=== PATIENT | male | born 1990 | race Caucasian/White ===

== ENCOUNTER 2019-04-21 23:35 | Emergency (ER) | payer OTHER ==
[~2019-04-21] VITALS: Ht 203.2 cm; Wt 119.8 kg
--- OUTSIDE RECORDS SUMMARY | ~2019-04-21 | XMS | Encounter Summary ---
Demographics + + + | Address | [address] | | | [place] [address] | + + + | Home Phone | | + + + | Preferred Language | Unknown | + + + | Marital Status | Single | + + + | Christianity Affiliation | Unknown | + + + | Race | Unknown | + + + | Ethnic Group | Unknown | + + + Author + + + | Author | [facility] | | | and Priyankana | + + + | Organization | [facility] | | | and Priyankana | + + + | Address | Unknown | + + + | Phone | Unavailable | + + + Support + + + + + | Name | Relationship | Address | Phone | + + + + + | Ewelina Gamboa | ECON | [address] | | | | | [place] | | | | | [address] | | + + + + + Care Team Providers + +------+ + | Care Case Operator Name | Role | Phone | + +------+ + | No, Physician | PCP | Unavailable | + +------+ + Reason for Visit + + + | Reason | Comments | + + + | Sore Throat | | | (Complicated) | | + + + Encounter Details +--------+ + + + + | Date | Type | Department | Care Team | Description | +--------+ + + + + | 05/19/ | Emergency | [facility] | [facility]ad[facility]us [facility] | Peritonsillar | | 2016 | | [facility] | MD Anaya [address] | abscess (Primary | | | | CENTER [address] | [place], [place] | Dx); Enlarged | | | | [place], [place] | [address] | tonsils; Right | | | | [address] | | maxillary sinusitis | | | | [phone] | Rivera Mariscal, | | | | | | [address] | | | | | | [facility] [facility] [place] | | | | | | [address] | | | | | | | | +--------+ + + + + Social History + +-------+ +--------+------+ | Tobacco Use | Types | Packs/Day | Years | Date | | | | | Used | | + +-------+ +--------+------+ | Never Assessed | | | | | + +-------+ +--------+------+ + + + | Sex Assigned at | Date Recorded | | | | + + + | Not on file | | + + + + + + + | Job Start Date | Occupation | Industry | + + + + | Not on file | Not on file | Not on file | + + + + + + + + | Travel History | Travel Start | Travel End | + + + + + + | No recent travel history available. | + + documented as of this encounter Last Filed Vital Signs + + + + + | Vital Sign | Reading | Time Taken | Comments | + + + + + | Blood Pressure | 135/77 | 05/19/2015 10:01 PM | | | | | PST | | + + + + + | Pulse | 102 | 05/19/2015 10:01 PM | | | | | PST | | + + + + + | Temperature | 36.2 C (97.2 F) | 05/19/2015 7:56 PM | | | | | PST | | + + + + + | Respiratory Rate | 16 | 05/19/2015 10:01 PM | | | | | PST | | + + + + + | Oxygen Saturation | 93% | 05/19/2015 10:01 PM | | | | | PST | | + + + + + | Inhaled Oxygen | - | - | | | Concentration | | | | + + + + + | Weight | 111.1 kg (245 lb) | 05/19/2015 7:56 PM | | | | | PST | | + + + + + | Height | 203.2 cm (6' 8") | 05/19/2015 7:56 PM | | | | | PST | | + + + + + | Body Mass Index | 26.91 | 05/19/2015 7:56 PM | | | | | PST | | + + + + + documented in this encounter Discharge Instructions Instructions Lm Miguel MD - 05/19/2015Return for severe worsening sympto ms. Follow-up in medical clinic. AttachmentsThe following attachments cannot be sent through Care Everywhere.VASU AGUILAR (INDONESIAN)documented in this encounter Medications at Time of Discharge + + + +---------+ + + | Medication | Sig | Dispensed | Refills | Start | End Date | | | | | | Date | | + + + +---------+ + + | | Take 1 tablet by | 30 | 0 | 05/19/19 | | | oxyCODONE-acetaminop | mouth every 6 hours | tablet | | 16 | | | hen (PERCOCET) 5-325 | as needed for Pain. | | | | | | mg per tablet | | | | | | + + + +---------+ + + | | Take 1 tablet by | 20 | 0 | 05/19/19 | | | amoxicillin-clavulan | mouth 2 times daily | tablet | | 16 | 6 | | ate (AUGMENTIN) | for 10 days. | | | | | | 875-125 mg per | | | | | | | tablet | | | | | | + + + +---------+ + + | predniSONE | Take 5 tablets by | 25 | 0 | 05/19/19 | | | (DELTASONE) 10 mg | mouth Daily for 5 | tablet | | 16 | 6 | | tablet | days. | | | | | + + + +---------+ + + documented as of this encounter Plan of Treatment Not on filedocumented as of this encounter Procedures + +--------+ + + + | Procedure Name | Priori | Date/Time | Associated Diagnosis | Comments | | | ty | | | | + +--------+ + + + | CULTURE, | Routin | 05/19/2015 | | Results for this | | RESPIRATORY, UPPER | e | 9:56 PM | | procedure are in the | | | | PST | | results section. | + +--------+ + + + documented in this encounter Results Culture, Respiratory, Upper (05/19/2015 9:56 PM PST) + + + + + + | Component | Value | Ref Range | Performed | Pathologist | | | | | At | Signature | + + + + + + | Culture | No Group A Streptococcus | | [facility] | | | | isolated | | [facility] | | | | | | MEDICAL | | | | | | CENTER - | | | | | | LABORATORY | | + + + + + + | Culture | 3+ Streptococcus | | [facility] | | | | pneumoniaeComment: | | [facility] | | | | Presumptive | | MEDICAL | | | | identification | | CENTER - | | | | | | LABORATORY | | + + + + + + + + | Specimen | + + | Respiratory - | | Specimen from throat | | (specimen) | + + + + + | Narrative | Performed At | + + + | Specimen kept for 7 days if further workup is needed. | [facility] | | | [facility] | | | [facility] | | | - LABORATORY | + + + + + + + + | Performing | Address | City/State/Zipcode | Phone Number | | Organization | | | | + + + + + | [facility] | [address] | [place], [place] | [phone] | | [facility] | | [address] | | | - LABORATORY | | | | + + + + + documented in this encounter Visit Diagnoses + + | Diagnosis | + + | Peritonsillar abscess - Primary | + + | Enlarged tonsils Hypertrophy of tonsils alone | + + | Right maxillary sinusitis | + + documented in this encounter Administered Medications + +--------+ +------+------+------+ | Medication Order | MAR | Action | Dose | Rate | Site | | | Action | Date | | | | + +--------+ +------+------+------+ | HYDROmorphone (DILAUDID) | Given | 05/19/19 | 1 mg | | | | injection 1 mg 1 mg, | | 16 8:36 | | | | | Intravenous, ONCE, 05/19/15 at | | PM PST | | | | | 5, For 1 dose | | | | | | + +--------+ +------+------+------+ +---+---+ | | | +---+---+ + +---------+ +--------+-------+---+ | lactated ringers (LR) infusion | New Bag | 05/19/19 | 1,000 | 100 | | | at 100 mL/hr, Intravenous, | | 16 8:53 | mLs | mL/hr | | | CONTINUOUS, Starting 05/19/15 | | PM PST | | | | | at 2035 | | | | | | + +---------+ +--------+-------+---+ +---+---+ | | | +---+---+ + + + + +---+---+ | oxyCODONE-acetaminophen | Dispense | 05/19/19 | 1 tablet | | | | (PERCOCET) 5-325 mg per tablet | to Home | 16 9:51 | | | | | (ED prepack) 1 tablet 1 tablet, | | PM PST | | | | | Oral, ONCE, 05/19/15 at 2100, | | | | | | | For 1 dose, 1 tablet(s) every 6 | | | | | | | hours prn pain Dispense for home | | | | | | | use., | | | | | | + + + + +---+---+ +---+---+ | | | +---+---+ documented in this encounter
--- OUTSIDE RECORDS SUMMARY | ~2019-04-21 | XMS | Encounter Summary ---
Demographics + + + | Address | [address] | | | [place] [address] | + + + | Home Phone | | + + + | Preferred Language | Unknown | + + + | Marital Status | Single | + + + | Yazidism Affiliation | Unknown | + + + | Race | Unknown | + + + | Ethnic Group | Unknown | + + + Author + + + | Author | [facility] | | | and Priyankana | + + + | Organization | [facility] | | | and Priyankana | + + + | Address | Unknown | + + + | Phone | Unavailable | + + + Support + + + + + | Name | Relationship | Address | Phone | + + + + + | Ewelina Gamboa | ECON | [address] | | | | | [place] | | | | | [address] | | + + + + + Care Team Providers + +------+ + | Care Emergency Room Physician Name | Role | Phone | + +------+ + | No Physician | PCP | Unavailable | + +------+ + Encounter Details +--------+ + + + + | Date | Type | Department | Care Team | Description | +--------+ + + + + | 07/01/ | Emergency | [facility] | [facility] Physician | Patient left without | | 2017 | | [facility] | | being seen (Primary | | | | CENTER [address] | | Dx) | | | | [place] | | | | | | [address] | | | | | | [phone] | | | +--------+ + + + [...] + + documented as of this encounter Medications at Time of Discharge + + + +---------+ + + | Medication | Sig | Dispensed | Refills | Start | End Date | | | | | | Date | | + + + +---------+ + + | | Take 1 tablet by | 30 | 0 | 01/20/20 | | | oxyCODONE-acetaminop | mouth every 6 hours | tablet | | 16 | | | hen (PERCOCET) 5-325 | as needed for Pain. | | | | | | mg per tablet | | | | | | + + + +---------+ + + documented as of this encounter Plan of Treatment Not on filedocumented as of this encounter Visit Diagnoses + + | Diagnosis | + + | Patient left without being seen - Primary Surgical or other procedure not carried out | | because of patient's decision | + + documented in this encounter"
--- OUTSIDE RECORDS SUMMARY | ~2019-04-21 | XMS | Encounter Summary ---
Demographics + + + | Address | [address] | | | [place] [address] | + + + | Home Phone | | + + + | Preferred Language | Unknown | + + + | Marital Status | Single | + + + | Bahai Affiliation | Unknown | + + + | Race | Unknown | + + + | Ethnic Group | Unknown | + + + Author + + + | Author | [facility] | | | and Priyankana | + + + | Organization | [facility] | | | and Priyankana | [...] | [place] | | | | | [address] | | + + + + + Care Team Providers + +------+ + | Care Tunnel Elastic Operator Zigzag Name | Role | Phone | + [...] [place] | | | | | | [address] | | | | | | [phone] | | | +--------+ + + + [...]
--- OUTSIDE RECORDS SUMMARY | ~2019-04-21 | XMS | Clinical Summary ---
Demographics + + + | Address | [address] | | | [place] [address] | + + + | Home Phone | | + + + | Preferred Language | Unknown | + + + | Marital Status | Single | + + + | Buddhism Affiliation | Unknown | + + + | Race | Unknown | + + + | Ethnic Group | Unknown | + + + Author + + + | Author | [facility] | | | and Priyankana | + + + | Organization | [facility] | | | and Priyankana | + + + | Address | Unknown | + + + | Phone | Unavailable | + + + Support + + + + + | Name | Relationship | Address | Phone | + + + + + | Ewelina Gamboa | ECON | [address] | | | | | [place] | | | | | [address] | | + + + + + Care Team Providers + +------+ + | Care Inspector Water Pollution Control Name | Role | Phone | + +------+ + | No, Physician | PCP | Unavailable | + +------+ + Allergies No Known Allergies Medications + + + +---------+------+------+-------+ | Medication | Sig | Dispensed | Refills | Star | End | Statu | | | | | | t | Date | s | | | | | | Date | | | + + + +---------+------+------+-------+ | | Take 1 tablet by | 30 | 0 | 01/2 | | Activ | | oxyCODONE-acetaminop | mouth every 6 hours | tablet | | 0/20 | | e | | hen (PERCOCET) 5-325 | as needed for Pain. | | | 16 | | | | mg per tablet | | | | | | | + + + +---------+------+------+-------+ Active Problems Not on file Social History + +-------+ +--------+------+ | Tobacco [...] recent travel history available. | + + Last Filed Vital Signs + + + [...] | | + + + + + Plan of Treatment + + + + + | Health Maintenance | Due Date | Last Done | Comments | + + + + + | Vaccine: | | | | | Dtap/Tdap/Td (1 - | 1 | | | | Tdap) | | | | + + + + + | Vaccine: Influenza | | | | | (#1) | 9 | | | + + + + + Results Not on filefrom Last 3 Months Advance Directives + + + + + | Type | Date Recorded | Patient | Explanation | | | | Board Mixer Tender | | + + + + + | Power of | | | | | Academic Assistant | | | | + + + + + | Advance | | | | | Directive | | | | + + + + +
--- OUTSIDE RECORDS SUMMARY | ~2019-04-21 | XMS | Clinical Summary ---
Demographics + + + | Address | [address] | | | [place] [address] | + + + | Home Phone | | + + + | Preferred Language | Unknown | + + + | Marital Status | Single | + + + | Yazidism Affiliation | Unknown | + + + | Race | Unknown | + + + | Ethnic Group | Unknown | + + + Author + + + | Author | [facility] | | | and Priyankana | + + + | Organization | [facility] | | | and Priyankana | [...] [place] | | | | | [address] | | + + + + + Care Team Providers + +------+ + | Care Solution Manager Name | Role | Phone | + [...] Patient | Explanation | | | | Exercise Specialist | | + + + + + | Power of | | | | | T Rail Turner | | | | + + + + + | Advance | | | | | Directive | | | | + + + + +
--- OUTSIDE RECORDS SUMMARY | ~2019-04-21 | XMS | Encounter Summary ---
Demographics + + + | Address | [address] | | | [place] [address] | + + + | Home Phone | | + + + | Preferred Language | Unknown | + + + | Marital Status | Single | + + + | Protestant Affiliation | Unknown | + + + | Race | Unknown | + + + | Ethnic Group | Unknown | + + + Author + + + | Author | [facility] | | | and Priyankana | + + + | Organization | [facility] [...] | [place] | | | | | [address] | | + + + + + Care Team Providers + +------+ + | Care Licensed Vocational Nurse Name | Role | Phone | + [...] | | | | CENTER [address] | [place], [place] | Dx); Enlarged | | | | [place], [place] | [address] | tonsils; Right | | | | [address] | | maxillary sinusitis | | | | [phone] | Rivera Mariscal, | | | | | | [address] | | | | | | [place] [facility] [place] | | | | | | [address] | | | | | | | [...] cannot be sent through Care Everywhere.VASU AGUILAR (AZERI)documented in this encounter Medications at Time of [...] ST. | [address] | [place], [place] | [phone] | | [facility] | | [address] | | | - LABORATORY | | [...]
[~2019-04-21 23:35] MED LIST: AMOXICILLIN500 MG PO; AUGMENTIN 875-1 EACH PO; IBUPROFEN600 MG PO; IBUPROFEN800 MG PO; PRILOSEC OTC20 MG PO; SEPTRA DS TABL1 EACH PO; TETRACYCLINE H500 MG PO; TRAMADOL HCL50 MG PO; TYLENOL325 MG PO; ULTRAM50 MG PO
[2019-04-21] MEDS ORDERED: ULTRAM50 MG PO (23:55)
== END 2019-04-22 01:48 | disposition home or self-care (01) ==
LOC: ED 23:35
DX: R10.11 Right upper quadrant pain (principal); B20 Human immunodeficiency virus [HIV] disease; J02.9 Acute pharyngitis, unspecified; Z79.891 Long term (current) use of opiate analgesic
CPT/HCPCS: 71046; 74177; 80053; 81001; 83690; 85025; 87502; 87880; 99284-25; Q9967

== ENCOUNTER 2020-06-08 13:32 | Emergency (ER) | payer OTHER ==
[~2020-06-08] VITALS: Ht 203.2 cm; Wt 111.1 kg
== END 2020-06-08 16:42 | disposition home or self-care (01) ==
LOC: ED 13:32
DX: B34.9 Viral infection, unspecified (principal); Z79.899 Other long term (current) drug therapy; Z20.822 Contact with and (suspected) exposure to COVID-19
CPT/HCPCS: 71046; 80053; 85025; 99283-25; C9803; U0003

== ENCOUNTER 2021-04-19 13:40 | Emergency (ER) | payer SELFPAY ==
[~2021-04-19] VITALS: Ht 203.2 cm; Wt 99.8 kg
[2021-04-19] MEDS ORDERED: HYDROXYZINE HCL25 MG PO (14:36)
[2021-04-19] MEDS ORDERED: COLACE100 MG PO (14:37)
[2021-04-19] MEDS ORDERED: PROZAC10 MG PO (14:37)
[2021-04-19] MEDS ORDERED: FLUOXETINE HCL20 M1 PO (14:38)
[2021-04-19] MEDS ORDERED: ACETAMINOPHEN500 MG PO (14:38)
[2021-04-19] MEDS ORDERED: BIKTARVY 50-201 EACH PO (14:38)
[2021-04-19] MEDS ORDERED: FIBER LAX625 MG PO (14:38)
== END 2021-04-19 19:08 | disposition home or self-care (01) ==
LOC: ED 13:40
DX: B34.9 Viral infection, unspecified (principal); Z20.822 Contact with and (suspected) exposure to COVID-19; Z21 Asymptomatic human immunodeficiency virus [HIV] infection status; Z79.899 Other long term (current) drug therapy
CPT/HCPCS: 71045; 80053; 83605; 85025; 99283-25; C9803; U0003

== ENCOUNTER 2023-01-28 00:18 | Emergency (ER) | payer OTHER ==
[~2023-01-28] VITALS: Ht 203.2 cm; Wt 103.4 kg
--- OUTSIDE RECORDS SUMMARY | ~2023-01-28 | XMS | Continuity of Care Document ---
Demographics + + + | Address | [address] | | | [place] [address] | + + + | Preferred Language | Unknown | + + + | Marital Status | Never | + + + | Yarsani Affiliation | Unknown | + + + | Race | White | + + + | Ethnic Group | Not or | + + + Author + + + | Author | [facility] | + + + | Organization | [facility] | + + + | Address | [address] | | | [place] [address] | + + + | Phone | | + + + Care Team Providers + + + + | Care Follow Up Rep Name | Role | Phone | + + + + Unavailable | Unavailable | + + + + Allergies No information. Encounters No information. Functional Status No information. Immunizations No information. Medications No information. Problems + + + + | date | description | facility | + + + + | 2023-01-21 22:41 | PERIAPICAL ABSCESS WITHOUT | [facility] | | | SINUS | | + + + + | 2023-01-21 22:41 | OTHER SPECIFIED DISORDERS | [facility] | | | OF TEETH AND SUPPORTING | | | | STRUCTURES | | + + + + | 2023-01-21 22:41 | OTHER DISTRIBUTION SUPERVISOR (CURRENT) | [facility] | | | DRUG THERAPY | | + + + + | 2023-01-21 22:41 | ALLERGY TO OTHER FOODS | [facility] | + + + + | 2023-01-21 22:41 | BEE ALLERGY STATUS | [facility] | + + + + Procedures No information. Results/Labs No information. Social History +--------+ + + | date | description | facility | +--------+ + + Vital Signs No information."
[~2023-01-28 00:18] MED LIST changes: +ACETAMINOPHEN500 MG PO; +AMOX TR-K CLV1 EAC1 PO; +BIKTARVY 50-201 EACH PO; +COLACE100 MG PO; +FIBER LAX625 MG PO; +FLUOXETINE HCL20 M1 PO; +HYDROXYZINE HCL25 MG PO; +PROZAC10 MG PO
--- OUTSIDE RECORDS SUMMARY | 2023-01-28 00:20 | XMS ---
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 LEE Security Manager Shift Events 1 event(s) in the past 18 months Most recent security events: Elopement at [facility] 02/20/2022 14:18 - Patient eloped before treatment completed. - Patient with suicidal and/or homicidal ideations eloped. - Patient eloped with IV in place. Details: PATIENT LWBS CRITERIA MET - [facility] - 2 Visits in 30 Days CARE PROVIDERS [facility]/Center: Federally Qualified 11/28/2021-[facility] ([facility]) [facility] PHONE: Unknown -Seun Dentist: [facility] PHONE: [phone] JORGE GREENBERG Current PHONE: Unknown MANPREET KUHN [facility] Current PHONE: Unknown SERGIO GIRON Cotton Presser/Loan And Credit Manager Current PHONE: [phone] MILA MASON Cotton Presser/Loan And Credit Manager Current PHONE: [phone] JASMEET KRAUS Cotton Presser/Loan And Credit Manager [facility] PHONE: Unknown Pratima has no Care Guidelines for this patient. E.D. VISIT COUNT (12 MO.) [address] [facility] TOTAL 5 NOTE: Visits indicate total known visits. ED/UCC VISIT TRACKING (12 MO.) 01/28/2023 00:19 [facility] [place] TYPE: Emergency COMPLAINT: - SPIDER BITE AND SORE THROAT 01/21/2023 22:41 [facility] [place] TYPE: Emergency COMPLAINT: - TOOTH PAIN DIAGNOSES: - Allergy to other foods - Bee allergy status - Other moth exterminator (current) drug therapy - Other specified disorders of teeth and supporting structures - Periapical abscess without sinus 06/24/2022 02:24 [facility] [place] TYPE: Emergency COMPLAINT: - INFECTION RIGHT ARM DIAGNOSES: - Cellulitis of right upper limb - Cellulitis of right upper limb - Cutaneous abscess of right upper limb - Cutaneous abscess of right upper limb 06/17/2022 12:30 [facility] [place] TYPE: Emergency COMPLAINT: - LUMP ON RIGHT WRIST DIAGNOSES: - Cellulitis of right upper limb - Erythematous condition, unspecified 02/20/2022 14:18 [facility] [place] TYPE: Emergency COMPLAINT: - POSS BLOODCLOT L LEG INPATIENT VISIT TRACKING (12 MO.) No inpatient visits to display in this time frame [email or web address]
[2023-01-28] MEDS ORDERED: HYDROCODON-ACE1 EA10 PO (01:20)
[2023-01-28] MEDS ORDERED: BACTRIM DS TAB1 EACH PO (01:28)
[2023-01-28 02:00] VITALS: BP 126/81
== END 2023-01-28 02:00 | disposition home or self-care (01) ==
LOC: ED 00:18
DX: J02.0 Streptococcal pharyngitis (principal); L03.115 Cellulitis of right lower limb; Z86.14 Personal history of Methicillin resistant Staphylococcus aureus infection; Z21 Asymptomatic human immunodeficiency virus [HIV] infection status; Z91.030 Bee allergy status; Z91.018 Allergy to other foods; Z79.899 Other long term (current) drug therapy
CPT/HCPCS: 87651; 99283; A9270

== ENCOUNTER 2023-02-15 20:39 | Emergency (ER) | payer OTHER ==
[~2023-02-15] VITALS: Ht 203.2 cm; Wt 103.5 kg
[~2023-02-15 20:39] MED LIST changes: +BACTRIM DS TAB1 EACH PO; +HYDROCODON-ACE1 EA10 PO
--- OUTSIDE RECORDS SUMMARY | 2023-02-15 20:41 | XMS ---
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 ELE Security Print Line Supervisor Events 1 event(s) in the past 18 months Most recent security events: Elopement at [facility] 02/20/2022 14:18 - Patient eloped before treatment completed. - Patient with suicidal and/or homicidal ideations eloped. - Patient eloped with IV in place. Details: PATIENT LWBS CRITERIA MET - [facility] - 2 Visits in 30 Days CARE PROVIDERS [facility]/Center: Federally Qualified 11/28/2021-[facility] PHONE: Unknown -Seun Dentist: Hand [facility] PHONE: [phone] JORGE GREENBERG Current PHONE: Unknown MANPREET KUHN [facility] Current PHONE: Unknown SERGIO GIRON Hybrid Derivatives Trader/Meat And Seafood Clerk Current PHONE: [phone] MILA MASON Hybrid Derivatives Trader/Meat And Seafood Clerk Current PHONE: [phone] JASMEET KRAUS Hybrid Derivatives Trader/Meat And Seafood Clerk [facility] PHONE: Unknown Pratima has no Care Guidelines for this patient. E.D. VISIT COUNT (12 MO.) [address] [facility] 2 [facility] TOTAL 6 NOTE: Visits indicate total known visits. ED/UCC VISIT TRACKING (12 MO.) 02/15/2023 20:39 [facility] [place] TYPE: Emergency COMPLAINT: - WOUND CHECK 01/28/2023 00:19 [facility] [place] TYPE: Emergency COMPLAINT: - SPIDER BITE AND SORE THROAT DIAGNOSES: - Acute pharyngitis, unspecified - Allergy to other foods - Bee allergy status - Cellulitis of right lower limb - Other nursing home (current) drug therapy - Personal history of Methicillin resistant Staphylococcus aureus infection - Streptococcal pharyngitis 01/21/2023 22:41 [facility] [place] TYPE: Emergency COMPLAINT: - TOOTH PAIN DIAGNOSES: - Allergy to other foods - Bee allergy status - Other terminal gauger (current) drug therapy - Other specified disorders of teeth and supporting structures - Periapical abscess without sinus 06/24/2022 02:24 [facility] [place] TYPE: Emergency COMPLAINT: - INFECTION RIGHT ARM DIAGNOSES: - Cellulitis of right upper limb - Cellulitis of right upper limb - Cutaneous abscess of right upper limb - Cutaneous abscess of right upper limb 06/17/2022 12:30 [employer] [email or web address] [employer] [facility] [place] TYPE: Emergency COMPLAINT: - LUMP ON RIGHT WRIST DIAGNOSES: - Cellulitis of right upper limb - Erythematous condition, unspecified 02/20/2022 14:18 [facility] [place] TYPE: Emergency COMPLAINT: - POSS BLOODCLOT L LEG INPATIENT VISIT TRACKING (12 MO.) No inpatient visits to display in this time frame [email or web address]
[2023-02-15 21:32] LABS: BASOPHILS 1.1 % (0-2); EOSINOPHILS 1.4 % (0-6); HEMATOCRIT 35.8 % (35.0-50.0); HEMOGLOBIN 12.1 g/dL (12.0-18.0); LYMPHOCYTES 20.2 % (24-44); MCH 28.4 (27-36); MCHC 33.8 g/dl (30-36); MCV 84.2 fl (81-99); MONOCYTES 8.9 % (0-12); NEUTROPHILS 68.4 % (39-80); PLATELET COUNT 247 K/uL (140-440); RBC 4.25 M/ul (4.3-5.7)
[2023-02-15 21:38] LABS: BILIRUBIN, URINE NEGATIVE (negative); BLOOD/HGB, URINE LARGE (Negative); KETONE, URINE NEGATIVE (Negative); LEUK ESTERASE, URINE NEGATIVE (negative); NITRITE, URINE NEGATIVE (negative); PH, URINE 6.5 (5-7)
[2023-02-15 21:46] LABS: BACTERIA, URINE NONE SEEN /hpf (negative); CASTS, URINE NONE SEEN \\lpf; COLLECTION TYPE, URINE CLEAN CATCH; CRYSTALS, URINE NONE SEEN (0-1+); EPITHELIAL CELLS, URINE 0 /lpf (0-1+); REFLEX CULTURE, URINE No (No); WHITE BLOOD CELLS, URINE 0-1 /HPF (0-5)
[2023-02-15 21:48] LABS: ALBUMIN 3.1 g/dL (3.4-5.0); ALBUMIN/GLOBULIN RATIO 0.62 (1.1-2.4); ANION GAP 7.6 (7-21); BILIRUBIN, TOTAL 0.6 ng/dL (0.2-1.0); BUN/CREATININE RATIO 12.08 (6.0-28.6); CALCIUM 8.4 mg/dL (8.5-10.1); CREATININE, SERUM 0.91 mg/dL (0.70-1.30); POTASSIUM 3.6 mmol/L (3.5-5.1); PROTEIN, TOTAL 8.1 g/dL (6.4-8.2)
[2023-02-15 21:52] LABS: AMPHETAMINES, URINE NEGATIVE (NEGATIVE); BARBITURATES, URINE NEGATIVE (NEGATIVE); BENZODIAZEPINE, URINE NEGATIVE (NEGATIVE); BUPRENORPHINE, URINE NEGATIVE (NEGATIVE); CANNABINOID, URINE NEGATIVE (NEGATIVE); COCAINE, URINE NEGATIVE (NEGATIVE); ECSTASY, URINE NEGATIVE (NEGATIVE); FENTANYL, URINE NEGATIVE (NEGATIVE); METHADONE, URINE NEGATIVE (NEGATIVE); OPIATES, URINE NEGATIVE (NEGATIVE); OXYCODONE, URINE NEGATIVE (NEGATIVE); PHENCYCLIDINE, URINE NEGATIVE (NEGATIVE)
[2023-02-15 21:53] LABS: LACTIC ACID, BLOOD 0.8 mmol/L (0.4-2.0)
[2023-02-15 22:03] LABS: INR 1.3 (0.80-1.30); PROTIME 15.6 Sec (11.2-14.2)
[2023-02-15 22:11] LABS: INFLUENZA B NAA NEGATIVE (NEGATIVE); RESPIRATORY SYNCYTIAL VIR NAA NEGATIVE (NEGATIVE)
[2023-02-15] MEDS ORDERED: BACTRIM DS TAB1 EACH PO (23:38)
[2023-02-15] MEDS ORDERED: TRAMADOL HCL50 MG PO (23:38)
[2023-02-16 01:16] VITALS: BP 126/59
[2023-02-17 11:15] LABS: % CD4 18 % (32-64); ABSOLUTE CD4 300 cells/uL (430-1800)
[2023-02-18 20:08] LABS: HIV-1 QNT BY NAAT INTERP Detected (Not Detected); HIV-1 QNT NAAT (LOG COPIES/ML) 4.13 (())
== END 2023-02-16 01:10 | disposition home or self-care (01) ==
LOC: ED 20:39
PROVIDERS: Family Medicine
DX: L03.115 Cellulitis of right lower limb (principal); L02.415 Cutaneous abscess of right lower limb; Z20.822 Contact with and (suspected) exposure to COVID-19; Z11.52 Encounter for screening for COVID-19; D72.829 Elevated white blood cell count, unspecified; Z91.030 Bee allergy status; Z91.018 Allergy to other foods; Z87.891 Personal history of nicotine dependence
CPT/HCPCS: 36415; 73701; 80053; 80307; 81001; 83605; 85025; 85610; 87040; 87502; 87536; 96375; 99284-25; A9270; C9803; J1885; J3370; J7030; Q9967; U0002

== ENCOUNTER 2023-04-01 10:33 | Emergency (ER) | payer OTHER ==
[~2023-04-01] VITALS: Ht 203.2 cm; Wt 105.6 kg
--- OUTSIDE RECORDS SUMMARY | ~2023-04-01 | XMS | Continuity of Care Document ---
Demographics + + + | Address | [address] | | | [place] [address] | + + + | Preferred Language | Unknown | + + + | Marital Status | Unknown | + + + | Presybeterian Affiliation | Unknown | + + + | Race | White | + + + | Ethnic Group | Not or | + + + Author + + + | Author | [facility] | + + + | Organization | [facility] | + + + | Address | [address] | | | [place] [address] | + + + | Phone | | + + + Care Team Providers + + + + | Care Soybean Specialties Cook Name | Role | Phone | + + + + Unavailable | Unavailable | + + + + Allergies No information. Encounters No information. Functional Status No information. Immunizations No information. Medications No information. Problems + + + + | date | description | facility | + + + + | 2023-03-02 16:03:57 | Wound Infection | [facility] | + + + + | 2023-03-02 16:28:33 | Cellulitis of right lower | [facility] | | | limb | | + + + + | 2023-03-05 21:23:27 | Other terminal make up operator (current) | [facility] | | | drug therapy | | + + + + Procedures No information. Results/Labs No information. Social History +--------+ + + | date | description | facility | +--------+ + + Vital Signs No information."
--- OUTSIDE RECORDS SUMMARY | 2023-04-01 10:36 | XMS ---
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 LEE Security Certified Physical Therapist Assistant Events 1 event(s) in the past 18 months Most recent security events: Elopement at [facility] 02/20/2022 14:18 - Patient eloped before treatment completed. - Patient with suicidal and/or homicidal ideations eloped. - Patient eloped with IV in place. Details: PATIENT LWBS CRITERIA MET - [facility] - [facility] - 2 Visits in [address] [facility]/Center: Federally Qualified 11/28/2021-[facility] ([facility] PHONE: Unknown -Seun Dentist: Fire Supervisor [facility] PHONE: [phone] JORGE GREENBERG Current PHONE: Unknown MANPREET KUHN [facility] Current PHONE: Unknown SERGIO GIRON Sex Offender Treatment Professional/Slag Wheeler Current PHONE: [phone] MILA MASON Sex Offender Treatment Professional/Slag Wheeler Current PHONE: [phone] JASMEET KRAUS Sex Offender Treatment Professional/Slag Wheeler [facility] TEAM PHONE: Unknown Pratima has no Care Guidelines for this patient. E.D. VISIT COUNT (12 MO.) 4 [facility] [address] [place] [address] [facility] TOTAL 7 NOTE: Visits indicate total known visits. ED/UCC VISIT TRACKING (12 MO.) 04/01/2023 10:34 [facility] [place] TYPE: Emergency COMPLAINT: - SHORTNESS OF BREATH 03/02/2023 16:03 [facility] TYPE: Emergency COMPLAINT: - right leg infection DIAGNOSES: - Cellulitis of right lower limb - Cellulitis of right lower limb - right leg infection - Wound Infection 02/15/2023 20:39 [facility] [place] TYPE: Emergency COMPLAINT: - WOUND CHECK DIAGNOSES: - Allergy to other foods - Bee allergy status - Cellulitis of right lower limb - Contact with and (suspected) exposure to COVID-19 - Cutaneous abscess of right lower limb - Elevated white blood cell count, unspecified - Encounter for screening for COVID-19 - Personal history of nicotine dependence - Unspecified open wound, right thigh, initial encounter 01/28/2023 00:19 [facility] [place] TYPE: Emergency COMPLAINT: - SPIDER BITE AND SORE THROAT DIAGNOSES: - Acute pharyngitis, unspecified - Allergy to other foods - Bee allergy status - Cellulitis of right lower limb - Other intermediate school teacher (current) drug therapy - Personal history of Methicillin resistant Staphylococcus aureus infection - Streptococcal pharyngitis 01/21/2023 22:41 [facility] [place] TYPE: Emergency COMPLAINT: - TOOTH PAIN DIAGNOSES: - Allergy to other foods - Bee allergy status - Other skilled nursing (current) drug therapy - Other specified disorders of teeth and supporting structures - Periapical abscess without sinus 06/24/2022 02:24 [facility] [facility] [place] TYPE: Emergency COMPLAINT: - INFECTION RIGHT ARM DIAGNOSES: - Cellulitis of right upper limb - Cellulitis of right upper limb - Cutaneous abscess of right upper limb - Cutaneous abscess of right upper limb 06/17/2022 12:30 [employer] [facility] [place] TYPE: Emergency COMPLAINT: - LUMP ON RIGHT WRIST DIAGNOSES: - Cellulitis of right upper limb - Erythematous condition, unspecified INPATIENT VISIT TRACKING (12 MO.) No inpatient visits to display in this time frame [email or web address]
[2023-04-01] MEDS ORDERED: CHLORDIAZEPOXID25 MG PO (10:45)
[2023-04-01 11:32] LABS: INFLUENZA B NAA NEGATIVE (NEGATIVE); RESPIRATORY SYNCYTIAL VIR NAA NEGATIVE (NEGATIVE)
[2023-04-01] MEDS ORDERED: ZITHROMAX250 MG PO (12:01)
[2023-04-01 12:13] VITALS: BP 141/80
== END 2023-04-01 12:10 | disposition home or self-care (01) ==
LOC: ED 10:33
PROVIDERS: Emergency Medicine
DX: J06.9 Acute upper respiratory infection, unspecified (principal); Z21 Asymptomatic human immunodeficiency virus [HIV] infection status; Z11.52 Encounter for screening for COVID-19; Z86.14 Personal history of Methicillin resistant Staphylococcus aureus infection; Z88.0 Allergy status to penicillin; Z91.018 Allergy to other foods; Z91.030 Bee allergy status; Z79.899 Other long term (current) drug therapy
CPT/HCPCS: 71045; 87502; 99283-25; A9270; C9803; U0002

== ENCOUNTER 2023-05-22 11:12 | Emergency (ER) | payer OTHER ==
[~2023-05-22] VITALS: Ht 203.2 cm; Wt 105.0 kg
--- OUTSIDE RECORDS SUMMARY | ~2023-05-22 | XMS | Continuity of Care Document ---
Demographics + + + | Address | [address] | | | [place] [address] | + + + | Preferred Language | Unknown | + + + | Marital Status | Unknown | + + + | Scientology Affiliation | Unknown | + + + | Race | White | + + + | Ethnic Group | Not or | + + + Author + + + | Author | [facility] | + + + | Organization | [facility] | + + + | Address | [address] | | | [place] [address] | + + + | Phone | | + + + Care Team Providers + + + + | Care Copy Center Specialist Name | Role | Phone | + [...] + + | 2023-03-05 21:23:27 | Other yard truck driver (current) | [facility] | | | drug therapy | | + + + + Procedures No information. Results/Labs No information. Social History +--------+ + + | date | description | facility | +--------+ + + Vital Signs No information."
[~2023-05-22 11:12] MED LIST changes: +CHLORDIAZEPOXID25 MG PO; +ZITHROMAX250 MG PO
--- OUTSIDE RECORDS SUMMARY | 2023-05-22 11:17 | XMS ---
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 - Patient eloped before treatment completed. - Patient with suicidal and/or homicidal ideations eloped. Details: PATIENT LWBS CRITERIA MET - 6 ED Visits in 6 Months CARE PROVIDERS [facility]/Center: Federally Qualified 11/28/2021-[facility] PHONE: Unknown -Seun Dentist: Medical Transport Specialist [facility] PHONE: [phone] JORGE GREENBERG Current PHONE: Unknown MANPREET KUHN [facility] Current PHONE: Unknown SERGIO GIRON International Marketing Manager/Geotechnicial Properties Technician Current PHONE: [phone] MILA MASON International Marketing Manager/Geotechnicial Properties Technician Current PHONE: [phone] [facility]Center: [facility] \F\ [facility] PHONE: [phone] JASMEET KRAUS International Marketing Manager/Geotechnicial Properties Technician [facility] TEAM PHONE: Unknown Pratima has no Care Guidelines for this patient. Maral VISIT COUNT (12 MO.) 5 SHADY Wiggins [address] [address] [address] [place] TOTAL 8 NOTE: Visits indicate total known visits. ED/UCC VISIT TRACKING (12 MO.) 05/22/2023 11:12 [facility] [place] TYPE: Emergency COMPLAINT: - COLD SYMPTOMS 04/01/2023 10:34 [facility] [place] TYPE: Emergency COMPLAINT: - SHORTNESS OF BREATH DIAGNOSES: - Acute upper respiratory infection, unspecified - Allergy status to penicillin - Allergy to other foods - Bee allergy status - Encounter for screening for COVID-19 - Fever, unspecified - Other detention (current) drug therapy - Personal history of Methicillin resistant Staphylococcus aureus infection 03/02/2023 16:03 [facility] TYPE: Emergency COMPLAINT: - right leg infection [...] wound, right thigh, initial encounter 01/28/2023 00:19 SHAYD [facility] [place] TYPE: Emergency COMPLAINT: - SPIDER BITE AND SORE THROAT DIAGNOSES: - Acute pharyngitis, unspecified - Allergy to other foods - Bee allergy status - Cellulitis of right lower limb - Other detention (current) drug therapy - Personal history of Methicillin resistant Staphylococcus aureus infection - Streptococcal pharyngitis 01/21/2023 22:41 [facility]Y [facility] [place] TYPE: Emergency COMPLAINT: - TOOTH PAIN DIAGNOSES: - Allergy to other foods - Bee allergy status - Other brine tank tender (current) drug therapy - Other specified disorders of teeth and supporting structures - Periapical abscess without sinus 06/24/2022 02:24 [facility] [place] TYPE: Emergency COMPLAINT: - INFECTION RIGHT ARM DIAGNOSES: - Cellulitis of right upper limb - Cellulitis of right upper limb - Cutaneous abscess of right upper limb - Cutaneous abscess of right upper limb 06/17/2022 12:30 [facility] [place] TYPE: Emergency COMPLAINT: - LUMP ON RIGHT WRIST DIAGNOSES: - Cellulitis of right upper limb - Erythematous condition, unspecified INPATIENT VISIT TRACKING (12 MO.) No inpatient visits to display in this time frame [id number]
[2023-05-22 12:04] LABS: INFLUENZA B NAA NEGATIVE (NEGATIVE); RESPIRATORY SYNCYTIAL VIR NAA NEGATIVE (NEGATIVE)
[2023-05-22] MEDS ORDERED: CEPHALEXIN500 M1 PO (12:27)
[2023-05-22 12:39] VITALS: BP 144/81
== END 2023-05-22 12:41 | disposition home or self-care (01) ==
LOC: ED 11:12
PROVIDERS: Emergency Medicine
DX: J02.0 Streptococcal pharyngitis (principal); Z88.0 Allergy status to penicillin; Z91.018 Allergy to other foods; Z91.030 Bee allergy status
CPT/HCPCS: 71045; 87081; 87502; 87651; 99283-25; A9270; U0002

== ENCOUNTER 2023-11-16 10:02 | Emergency (ER) | payer OTHER ==
[~2023-11-16 10:02] MED LIST changes: +CEPHALEXIN500 M1 PO
[2023-11-16 11:34] VITALS: BP 138/83
== END 2023-11-16 11:34 | disposition home or self-care (01) ==
LOC: ED 10:02
DX: L03.114 Cellulitis of left upper limb (principal); Z21 Asymptomatic human immunodeficiency virus [HIV] infection status; Z88.1 Allergy status to other antibiotic agents; Z91.030 Bee allergy status
CPT/HCPCS: 99283

== ENCOUNTER 2024-02-23 14:09 | Emergency (ER) | payer OTHER ==
[~2024-02-23] VITALS: Ht 203.2 cm; Wt 110.7 kg
--- OUTSIDE RECORDS SUMMARY | 2024-02-23 16:01 | XMS ---
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 LEE Security Business Relations Manager Events No recent Security Events currently on file CRITERIA MET - [facility] - 2 Visits in 30 Days CARE PROVIDERS [facility]/Center: Federally Qualified 11/28/2021-[facility] ([facility]) [facility] PHONE: Unknown -Jun Dental+ Dentist: Vice Admiral [facility] PHONE: [phone] -RADHA- Dentist: Vice Admiral [facility] PHONE: [phone] JORGE GREENBERG Current PHONE: Unknown MANPREET KUHN [facility] Current PHONE: Unknown SERGIO GIRON Oven Worker/Senior Analyst Market Intelligence Current PHONE: [phone] MILA MASON Oven Worker/Senior Analyst Market Intelligence Current PHONE: [phone] [facility]/Center: [facility] Health [facility] \F\ [facility] PHONE: [phone] JASMEET KRAUS Oven Worker/Senior Analyst Market Intelligence Current REGIONAL CARE TEAM PHONE: Unknown Pratima has no Care Guidelines for this patient. Maral VISIT COUNT (12 MO.) 5 [facility] [address] [place] [address] [place] TOTAL 10 NOTE: Visits indicate total known visits. ED/UCC VISIT TRACKING (12 MO.) 02/23/2024 14:10 [facility] [place] [facility] COMPLAINT: - SKIN PROBLEM 02/11/2024 19:49 [facility] [place] TYPE: Emergency DIAGNOSES: - Hidradenitis suppurativa - ABSCESS 11/16/2023 10:02 [facility] [place]: [place] COMPLAINT: - LEFT HAND SWELLING DIAGNOSES: - Allergy status to other antibiotic agents - Bee allergy status - Cellulitis of left upper limb - Pain in left hand 10/21/2023 07:34 [facility] [place] TYPE: Emergency DIAGNOSES: - Non-pressure chronic ulcer of unspecified part of unspecified lower leg with unspecified severity - L ANKLE PAIN 10/12/2023 05:48 [facility] [place] TYPE: Emergency DIAGNOSES: - Local infection of the skin and subcutaneous tissue, unspecified - Other injury of unspecified body region, initial encounter - POSSIBLE CELLULITIS 08/20/2023 10:43 SH[facility]Y [facility] [place] TYPE: Emergency COMPLAINT: - PAIN BOTH LEGS DIAGNOSES: - Allergy status to penicillin - Allergy to other foods - Bee allergy status - Cellulitis of left lower limb - Pain in left knee - Personal history of Methicillin resistant Staphylococcus aureus infection - Prepatellar bursitis, left knee 07/29/2023 16:14 [facility] TYPE: Emergency DIAGNOSES: 96416. Skin issue 64181. Cutaneous abscess of right axilla 05/22/2023 11:12 [facility] [place] TYPE: Emergency COMPLAINT: - COLD SYMPTOMS DIAGNOSES: - Acute pharyngitis, unspecified - Allergy status to penicillin - Allergy to other foods - Bee allergy status - Streptococcal pharyngitis 04/01/2023 10:[address] [facility] [place] TYPE: Emergency COMPLAINT: - SHORTNESS OF BREATH DIAGNOSES: - Acute upper respiratory infection, unspecified - Allergy status to penicillin - Allergy to other foods - Bee allergy status - Encounter for screening for COVID-19 - Fever, unspecified - Other [place] [facility] ([facility] drug therapy - Personal history of Methicillin resistant Staphylococcus aureus infection 03/02/2023 16:03 [facility] [place] [facility] [facility] TYPE: Emergency COMPLAINT: - right leg infection DIAGNOSES: - Cellulitis of right lower limb - Cellulitis of right lower limb - right leg infection - Wound Infection INPATIENT VISIT TRACKING (12 MO.) No inpatient visits to display in this time frame [id number]
[2024-02-23] MEDS ORDERED: BACTRIM DS TAB1 EACH PO (16:09)
[2024-02-23] MEDS ORDERED: TRIMETHOPRIM/SULFAMETHOXAZOLE 1 EA TAB PO ONE (16:15)
[2024-02-23 16:22] VITALS: BP 139/82
== END 2024-02-23 16:22 | disposition home or self-care (01) ==
LOC: ED 14:09
DX: S41.102A Unspecified open wound of left upper arm, initial encounter (principal); Z88.0 Allergy status to penicillin; Z91.018 Allergy to other foods; Z91.030 Bee allergy status; X58.XXXA Exposure to other specified factors, initial encounter
CPT/HCPCS: 99282; A9270

== ENCOUNTER 2024-03-31 02:36 | Emergency (ER) | payer OTHER ==
[~2024-03-31] VITALS: Ht 203.2 cm; Wt 100.0 kg
--- OUTSIDE RECORDS SUMMARY | 2024-03-31 02:37 | XMS ---
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 PHONE: Unknown -Jun Dental+ Dentist: Records Management Associate [facility] PHONE: [phone] -RADHA- Dentist: Records Management Associate [facility] DENTAL [facility] PHONE: [phone] JORGE GREENBERG Current PHONE: Unknown MANPREET KUHN [facility] Current PHONE: Unknown SERGIO GIRON Rail Director/Director Of Strategic Partnerships Current PHONE: [phone] MILA MASON Rail Director/Director Of Strategic Partnerships Current PHONE: [phone] [facility]: [facility] \F\ [facility] PHONE: [phone] JASMEET KRAUS Rail Director/Director Of Strategic Partnerships Current REGIONAL CARE TEAM PHONE: Unknown Pratima has no Care Guidelines for this patient. Maral VISIT COUNT (12 MO.) 6 SHADY Posadas [address] TOTAL 10 NOTE: Visits indicate total known visits. ED/UCC VISIT TRACKING (12 MO.) 03/31/2024 02:[address] [facility] [place] TYPE: Emergency COMPLAINT: - WOUND CHECK 02/23/2024 14:[address] [facility] [address] [facility] [place] TYPE: Emergency COMPLAINT: - SKIN PROBLEM DIAGNOSES: - Allergy status to penicillin - Allergy to other foods - Bee allergy status - Cutaneous abscess of left axilla - Exposure to other specified factors, initial encounter - Unspecified open wound of left upper arm, initial encounter 02/11/2024 19:49 [facility] [place] TYPE: Emergency DIAGNOSES: - Hidradenitis suppurativa - ABSCESS 11/16/2023 10:[address] [facility] [address] [facility] [place] TYPE: Emergency COMPLAINT: - LEFT HAND SWELLING DIAGNOSES: - Allergy status to other antibiotic agents - Bee allergy status - Cellulitis of left upper limb - Pain in left hand 10/21/2023 07:34 [facility] [place] TYPE: Emergency DIAGNOSES: - Non-pressure chronic ulcer of unspecified part of unspecified lower leg with unspecified severity - L ANKLE PAIN 10/12/2023 05:48 [facility] [place] TYPE: Emergency DIAGNOSES: - Local infection [...] - Prepatellar bursitis, left knee 07/29/2023 16:14 [facility] TYPE: Emergency DIAGNOSES: 15283. Skin issue 34372. Cutaneous abscess of right axilla 05/22/2023 11:12 [facility] [place] TYPE: Emergency COMPLAINT: - COLD SYMPTOMS DIAGNOSES: - Acute pharyngitis, unspecified - Allergy status to penicillin - Allergy to other foods - Bee allergy status - Streptococcal pharyngitis 04/01/2023 10:34 [facility] [place] TYPE: Emergency COMPLAINT: - SHORTNESS OF BREATH DIAGNOSES: - Acute upper respiratory infection, unspecified - Allergy status to penicillin - Allergy to other foods - Bee allergy status - Encounter for screening for COVID-19 - Fever, unspecified - Other termite helper (current) drug therapy - Personal history of Methicillin resistant Staphylococcus aureus infection INPATIENT VISIT TRACKING (12 MO.) No inpatient visits to display in this time frame [id number]
[2024-03-31 03:22] LABS: RBC 3.94 M/ul (4.3-5.7)
[2024-03-31 03:25] LABS: BASOPHILS 0.5 % (0-2); EOSINOPHILS 1.1 % (0-6); LYMPHOCYTES 22.5 % (24-44); MCH 27.8 (27-36); MCHC 34.3 g/dl (30-36); MCV 81.1 fl (81-99); MONOCYTES 9.8 % (0-12); NEUTROPHILS 66.1 % (39-80); PLATELET COUNT 214 K/uL (140-440); RDW 14.1 (10.5-15.0)
[2024-03-31 03:26] LABS: BILIRUBIN, URINE NEGATIVE (negative); BLOOD/HGB, URINE MODERATE (Negative); KETONE, URINE NEGATIVE (Negative); LEUK ESTERASE, URINE NEGATIVE (negative); NITRITE, URINE NEGATIVE (negative)
[2024-03-31 03:30] LABS: ALBUMIN 2.9 g/dL (3.4-5.0); ALBUMIN/GLOBULIN RATIO 0.56 (1.1-2.4); ANION GAP 13.3 (7-21); BILIRUBIN, TOTAL 0.4 ng/dL (0.2-1.0); BUN/CREATININE RATIO 11.36 (6.0-28.6); CALCIUM 7.9 mg/dL (8.5-10.1); CREATININE, SERUM 0.88 mg/dL (0.70-1.30); POTASSIUM 3.3 mmol/L (3.5-5.1); PROTEIN, TOTAL 8.1 g/dL (6.4-8.2)
[2024-03-31] MEDS ORDERED: D5%-NACL 0.9% 20 KCL 1,000 ML IV SCH (03:30)
[2024-03-31 03:38] LABS: BACTERIA, URINE 1+ /hpf (negative); CASTS, URINE NONE SEEN \\lpf; COLLECTION TYPE, URINE CLEAN CATCH; CRYSTALS, URINE NONE SEEN (0-1+); EPITHELIAL CELLS, URINE NS /lpf (0-1+); REFLEX CULTURE, URINE No (No)
[2024-03-31 03:40] LABS: AMPHETAMINES, URINE NEGATIVE (NEGATIVE); BARBITURATES, URINE NEGATIVE (NEGATIVE); BENZODIAZEPINE, URINE NEGATIVE (NEGATIVE); BUPRENORPHINE, URINE NEGATIVE (NEGATIVE); CANNABINOID, URINE NEGATIVE (NEGATIVE); COCAINE, URINE NEGATIVE (NEGATIVE); ECSTASY, URINE POSITIVE (NEGATIVE); FENTANYL, URINE NEGATIVE (NEGATIVE); METHADONE, URINE NEGATIVE (NEGATIVE); OPIATES, URINE NEGATIVE (NEGATIVE); OXYCODONE, URINE NEGATIVE (NEGATIVE); PHENCYCLIDINE, URINE NEGATIVE (NEGATIVE)
[2024-03-31] MEDS ORDERED: BACTRIM DS TAB1 EACH PO (03:44)
[2024-03-31] MEDS ORDERED: BIKTARVY 50-201 EACH PO (03:44)
[2024-03-31 03:45] LABS: INFLUENZA B NAA NEGATIVE (NEGATIVE); RESPIRATORY SYNCYTIAL VIR NAA NEGATIVE (NEGATIVE)
[2024-03-31] MEDS ORDERED: POTASSIUM CHLORIDE 10 MEQ TABCR PO ONE (03:45)
[2024-03-31] MEDS ORDERED: TRIMETHOPRIM/SULFAMETHOXAZOLE 1 EA TAB PO ONE (03:45)
[2024-03-31 04:07] VITALS: BP 136/84
== END 2024-03-31 04:08 | disposition home or self-care (01) ==
LOC: ED 02:36
PROVIDERS: Internal Medicine
DX: L02.411 Cutaneous abscess of right axilla (principal); L02.31 Cutaneous abscess of buttock; Z88.0 Allergy status to penicillin; Z91.018 Allergy to other foods; Z91.030 Bee allergy status
CPT/HCPCS: 36415; 71045; 80053; 80307; 81001; 83735; 85025; 87502; 99283-25; A9270; U0002

== ENCOUNTER 2024-05-20 19:58 | Emergency (ER) | payer OTHER ==
[~2024-05-20] VITALS: Ht 203.2 cm; Wt 109.3 kg
[2024-05-20] MEDS ORDERED: DOXYCYCLINE HYCLATE 100 MG HOME.PACK PO ONE (20:30)
[2024-05-20] MEDS ORDERED: methylPREDNISolone 4 MG HOME.PACK PO ONE (20:30)
[2024-05-20 20:45] VITALS: BP 136/87
== END 2024-05-20 20:48 | disposition home or self-care (01) ==
LOC: ED 19:58
DX: L02.411 Cutaneous abscess of right axilla (principal); Z21 Asymptomatic human immunodeficiency virus [HIV] infection status; Z88.0 Allergy status to penicillin; Z91.030 Bee allergy status; Z91.018 Allergy to other foods; Z79.899 Other long term (current) drug therapy
CPT/HCPCS: 99282; A9270

== ENCOUNTER 2024-09-13 19:23 | Emergency (ER) | payer OTHER | END 2024-09-13 22:06 | disposition home or self-care (01) | LOC: ED 19:23 | DX: L03.114 Cellulitis of left upper limb (principal); Z88.1 Allergy status to other antibiotic agents; Z91.018 Allergy to other foods; Z91.030 Bee allergy status; Z79.899 Other long term (current) drug therapy ==

== ENCOUNTER 2024-11-19 08:24 | Emergency (ER) | payer OTHER ==
[~2024-11-19] VITALS: Ht 203.2 cm; Wt 109.8 kg
[~2024-11-19 08:24] MED LIST changes: +CLEOCIN HCL300 MG PO
[2024-11-19] MEDS ORDERED: FAMOTIDINE 20 MG/ 2 ML VIAL IV ONE (09:15)
[2024-11-19] MEDS ORDERED: SODIUM CHLORIDE 0.9% 1,000 ML IV PRN (09:15)
[2024-11-19 09:26] LABS: BASOPHILS 0.7 % (0.2-1.2); EOSINOPHILS 1.6 % (0.8-7.0); LYMPHOCYTES 26.0 % (21.8-53.1); MCH 27.1 PG (25.7-32.2); MCHC 32.7 g/dL (32.3-36.5); MCV 82.8 fL (79.0-92.2); MONOCYTES 10.0 % (5.3-12.2); NEUTROPHILS 61.2 % (34.0-67.9); RBC 4.65 M/uL (4.63-6.08)
[2024-11-19 09:37] LABS: INR 1.08 (0.80-1.30); PROTIME 13.6 Sec (11.2-14.2)
[2024-11-19 09:42] LABS: ALT (SGPT) 23.0 U/L (14-59); AST (SGOT) 18.0 U/L (15-37); GLOMERULAR FILTRATION RATE,EST 126.0 mL/min (>60); PROTEIN, TOTAL 8.4 g/dL (6.4-8.2); UREA NITROGEN 8.0 mg/dL (7-18)
[2024-11-19 11:01] LABS: BLOOD/HGB, URINE TRACE-I (Negative); KETONE, URINE NEGATIVE (Negative); LEUK ESTERASE, URINE NEGATIVE (negative); NITRITE, URINE NEGATIVE (negative)
[2024-11-19 11:09] LABS: BACTERIA, URINE NONE SEEN /hpf (negative); CASTS, URINE NONE SEEN \\lpf; CRYSTALS, URINE NONE SEEN (0-1+); EPITHELIAL CELLS, URINE 0 /lpf (0-1+); REFLEX CULTURE, URINE No (No)
[2024-11-19 11:30] VITALS: BP 138/91
== END 2024-11-19 11:30 | disposition home or self-care (01) ==
LOC: ED 08:24
PROVIDERS: Emergency Medicine
DX: S20.211A Contusion of right front wall of thorax, initial encounter (principal); W19.XXXA Unspecified fall, initial encounter; Z88.0 Allergy status to penicillin; Z91.030 Bee allergy status; Z91.018 Allergy to other foods
CPT/HCPCS: 36415; 71250; 80053; 81001; 83690; 85025; 85610; 96374; 99284-25; J7030

== ENCOUNTER 2024-12-31 16:37 | Emergency (ER) | payer OTHER ==
[~2024-12-31] VITALS: Ht 203.2 cm; Wt 109.8 kg
[2024-12-31 18:55] VITALS: BP 139/98
== END 2024-12-31 18:57 | disposition home or self-care (01) ==
LOC: ED 16:37
DX: S90.31XA Contusion of right foot, initial encounter (principal); Z21 Asymptomatic human immunodeficiency virus [HIV] infection status; Z88.0 Allergy status to penicillin; Z91.030 Bee allergy status; Z91.018 Allergy to other foods; W22.8XXA Striking against or struck by other objects, initial encounter
CPT/HCPCS: 73630; 99283

== ENCOUNTER 2025-02-14 06:24 | Emergency (ER) | payer OTHER ==
[~2025-02-14] VITALS: Ht 203.2 cm; Wt 109.8 kg
[2025-02-14] MEDS ORDERED: HYDROCODONE/ACETA 5/325 TAB PO ONE (06:45)
[2025-02-14] MEDS ORDERED: CLEOCIN HCL300 MG PO (07:10)
[2025-02-14] MEDS ORDERED: HYDROCODONE BIT/ACETAMINOPHEN 5/325 MG 1 TAB HOME.PACK PO ONE (07:45)
[2025-02-14 07:49] VITALS: BP 147/80
== END 2025-02-14 07:50 | disposition home or self-care (01) ==
LOC: ED 06:24
DX: K08.89 Other specified disorders of teeth and supporting structures (principal); Z21 Asymptomatic human immunodeficiency virus [HIV] infection status; Z88.0 Allergy status to penicillin; Z91.030 Bee allergy status; Z91.018 Allergy to other foods
CPT/HCPCS: 99282; A9270

== ENCOUNTER 2025-02-21 07:23 | Emergency (ER) | payer OTHER ==
[~2025-02-21] VITALS: Ht 203.2 cm; Wt 104.7 kg
--- OUTSIDE RECORDS SUMMARY | ~2025-02-21 | XMS | Continuity of Care Document ---
Demographics + + + | Address | [address] | | | [place] [address] | + + + | Preferred Language | Unknown | + + + | Marital Status | Never | + + + | Hindu Affiliation | Unknown | + + + | Race | White | + + + | Ethnic Group | Not or | + + + Author + + + | Author | [facility] | + + + | Organization | [facility] | + + + | Address | [address] | | | [place] [address] | + + + | Phone | | + + + Care Team Providers + + + + | Care Platform Stapler Name | Role | Phone | + + + + Unavailable | Unavailable | + + + + Unavailable | Unavailable | + + + + Allergies No information. Encounters No information. Functional Status No information. Immunizations No information. Medications + + + + | date | description | facility | + + + + | (no date) | DOC[facility] SODIUM [facility] | | | [facility] | + + + + | (no date) | IBUPROFEN | [facility] | | | | [facility] | + + + + | (no date) | ACETAMINOPHEN | [facility] | | | | [facility] | + + + + | (no date) | Bictegrav/Emtricit/Tenofov | [facility] | | | [place] | [facility] | + + + + | (no date) | FLUOXETINE HCL | [facility] | | | | [facility] | + + + + | (no date) | FLUOXETINE HCL | [facility] | | | | [facility] | + + + + | (no date) | CALCIUM POLYCARBOPHIL | [facility] | | | | [facility] | + + + + | (no date) | ACETAMINOPHEN | [facility] | | | | [facility] | + + + + | 2025-02-14 00:00 | CLINDAMYCIN HCL | [facility] | | | | [facility] | + + + + | (no date) | AMOXICILLIN/POTASSIUM CLAV | [facility] | | | | [facility] | + + + + | (no date) | TRAMADOL HCL | [facility] | | | | [facility] | + + + + | 2025-02-14 00:00 | HYDROCODONE | [facility] | | | BIT/ACETAMINOPHEN | [facility] | + + + + | (no date) | CHLORDIAZEPOXIDE HCL | [facility] | | | | [facility] | + + + + | (no date) | hydrOXYzine HCL | [facility] | | | | [facility] | + + + + Problems + + + + | date | description | facility | + + + + | 2024-12-31 00:00 | Injury of extremity | [facility] | | | | [facility] | + + + + | 2025-02-14 00:00 | Toothache | [facility] | | | | [facility] | + + + + Procedures [...]
--- OUTSIDE RECORDS SUMMARY | 2025-02-21 07:30 | XMS ---
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 No recent Security Events currently on file CRITERIA MET - [facility] - 2 Visits in 30 Days CARE PROVIDERS [facility]/Center: Federally Qualified 11/28/2021-[facility] PHONE: Unknown -, Jun Dental+ Dentist: Sawmill Or Timber Yard Worker Current [place] PHONE: [phone] MANPREET KUHN [facility] Current PHONE: Unknown SERGIO GIRON Final Inspector Motorcyles/Curriculum Counselor Current PHONE: [phone] MILA MASON Final Inspector Motorcyles/Curriculum Counselor Current PHONE: [phone] [facility]: [facility]. \F\ <UNAVAIL> PHONE: [phone] JASMEET KRAUS Final Inspector Motorcyles/Curriculum Counselor [facility] TEAM PHONE: Unknown Pratima has no Care Guidelines for this patient. Maral VISIT COUNT (12 MO.) Yasmine Wiggins TOTAL 8 NOTE: Visits indicate total known visits. ED/UCC VISIT TRACKING (12 MO.) 02/21/2025 07:24 [facility] [place] TYPE: Emergency COMPLAINT: - FALL 02/14/2025 06:25 [facility] [place] TYPE: Emergency COMPLAINT: - DENTAL PROBLEM DIAGNOSES: - Allergy status to penicillin - Allergy to other foods - Bee allergy status - Other specified disorders of teeth and supporting structures 12/31/2024 16:38 [facility] [place] TYPE: Emergency COMPLAINT: - RT FOOT PAIN DIAGNOSES: - Allergy status to penicillin - Allergy to other foods - Bee allergy status - Contusion of right foot, initial encounter - Pain in right foot - Striking against or struck by other objects, initial encounter 11/19/2024 08:25 [facility] [place] TYPE: Emergency COMPLAINT: - RT RIB INJURY DIAGNOSES: - Allergy status to penicillin - Allergy to other foods - Bee allergy status - Contusion of right front wall of thorax, initial encounter - Pleurodynia - Unspecified fall, initial encounter 09/13/2024 19:23 [facility] [place] TYPE: Emergency COMPLAINT: - POSS INFECTION DIAGNOSES: - Allergy status to other antibiotic agents - Allergy to other foods - Bee allergy status - Cellulitis of left upper limb - Other skilled nursing (current) drug therapy - Pain in left elbow 05/20/2024 19:58 [facility] [place] TYPE: Emergency COMPLAINT: - SKIN ISSUE DIAGNOSES: - Allergy status to penicillin - Allergy to other foods - Bee allergy status - Cutaneous abscess of right axilla - Other iphone developer (current) drug therapy 03/31/2024 02:36 SHADY Barrettgeetha PascalJohn [place] TYPE: Emergency COMPLAINT: - WOUND CHECK DIAGNOSES: - Allergy status to penicillin - Allergy to other foods - Bee allergy status - Cutaneous abscess of buttock - Cutaneous abscess of right axilla - Localized swelling, mass and lump, right upper limb 02/23/2024 14:10 SHADY Barrettgeetha PascalJohn [place] TYPE: Emergency COMPLAINT: - SKIN PROBLEM DIAGNOSES: - Allergy status to penicillin - Allergy to other foods - Bee allergy status - Cutaneous abscess of left axilla - Exposure to other specified factors, initial encounter - Unspecified open wound of left upper arm, initial encounter INPATIENT VISIT TRACKING (12 MO.) No inpatient visits to display in this time frame [id number]
[2025-02-21] MEDS ORDERED: BIKTARVY 50-201 EACH PO (07:40)
[2025-02-21 09:01] VITALS: BP 125/86
== END 2025-02-21 08:57 | disposition home or self-care (01) ==
LOC: ED 07:23
DX: S20.214A Contusion of middle front wall of thorax, initial encounter (principal); W01.0XXA Fall on same level from slipping, tripping and stumbling without subsequent striking against object, initial encounter; Z88.1 Allergy status to other antibiotic agents; Z91.030 Bee allergy status; Z79.899 Other long term (current) drug therapy
CPT/HCPCS: 71045; 99283-25

== ENCOUNTER 2025-03-20 15:16 | Emergency (ER) | payer OTHER ==
[~2025-03-20] VITALS: Ht 203.2 cm; Wt 105.5 kg
--- OUTSIDE RECORDS SUMMARY | ~2025-03-20 | XMS | Continuity of Care Document ---
Demographics + + + | Address | [address] | | | [place] [address] | + + + | Preferred Language | Unknown | + + + | Marital Status | Never | + + + | Jew Affiliation | Unknown | + + + | Race | White | + + + | Ethnic Group | Not or | + + + Author + + + | Author | [facility] | + + + | Organization | [facility] | + + + | Address | [address] | | | [place] [address] | + + + | Phone | | + + + Care Team Providers + + + + | Care Diesel Retrofit Installer Name | Role | Phone | + + + + Unavailable | Unavailable | + + + + Unavailable | Unavailable | + + + + Allergies No information. Encounters No information. Functional Status No information. Immunizations No information. Medications + + + + | date | description | facility | + + + + | (no date) | [facility] SODIUM | [facility] | | | | [facility] | + + + + | (no date) | IBUPROFEN | [facility] | | | | [facility] | + + + + | (no date) | ACETAMINOPHEN | [facility] | | | | [facility] | + + + + | (no date) | Bictegrav/Emtricit/Tenofov | [facility] | | | [place] | [facility] | + + + + | (no date) | FLUOXETINE HCL | [facility] | | | | [facility] | + + + + | (no date) | FLUOXETINE HCL | [facility] | | | | [facility] | + + + + | (no date) | CALCIUM POLYCARBOPHIL | [facility] | | | | [facility] | + + + + | (no date) | ACETAMINOPHEN | [facility] | | | | [facility] | + + + + | 2025-02-14 00:00 | CLINDAMYCIN HCL | [facility] | | | | [facility] | + + + + | (no date) | AMOXICILLIN/POTASSIUM CLAV | [facility] | | | | [facility] | + + + + | (no date) | TRAMADOL HCL | [facility] | | | | [facility] | + + + + | 2025-02-14 00:00 | HYDROCODONE | [facility] | | | BIT/ACETAMINOPHEN | [facility] | + + + + | (no date) | CHLORDIAZEPOXIDE HCL | [facility] | | | | [facility] | + + + + | (no date) | hydrOXYzine HCL | [facility] | | | | [facility] | + + + + Problems + + + + | date | description | facility | + + + + | 2024-12-31 00:00 | Injury of extremity | [facility] | | | | [facility] | + + + + | 2025-02-14 00:00 | Toothache | [facility] | | | | [facility] | + + + + Procedures [...] 242.068 | lb | + + + +---------+"
--- OUTSIDE RECORDS SUMMARY | 2025-03-20 15:17 | XMS ---
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 No recent Security Events currently on file CRITERIA MET - [facility] - 2 Visits in 30 Days CARE PROVIDERS [facility]/Center: Federally Qualified 11/28/2021-[facility] ([facility]) [facility] PHONE: Unknown -, Jun Dental+ Dentist: Gang Sawyer Current [place] PHONE: [phone] MANPREET KUHN [facility] Current PHONE: Unknown SERGIO GIRON Move Coordinator/Senior Control Systems Engineer Current PHONE: [phone] MILA MASON Move Coordinator/Senior Control Systems Engineer Current PHONE: [phone] [facility]: [facility]. \F\ <UNAVAIL> PHONE: [phone] JASMEET KRAUS Move Coordinator/Senior Control Systems Engineer [facility] TEAM PHONE: Unknown Pratima has no Care Guidelines for this patient. Maral VISIT COUNT (12 MO.) Yasmine Wiggins TOTAL 8 NOTE: Visits indicate total known visits. ED/UCC VISIT TRACKING (12 MO.) 03/20/2025 15:17 [facility] [place] TYPE: Emergency COMPLAINT: - TOOTH PAIN 02/21/2025 07:24 [facility] [place] TYPE: Emergency COMPLAINT: - FALL DIAGNOSES: - Allergy status to other antibiotic agents - Bee allergy status - Contusion of middle front wall of thorax, initial encounter - Fall on same level from slipping, tripping and stumbling without subsequent striking against object, initial encounter - Other chest pain - Other long-term (current) drug therapy 02/14/2025 06:25 SH[facility]Y Barrettgeetha PascalJohn [place] TYPE: Emergency COMPLAINT: - DENTAL PROBLEM [...] Unspecified fall, initial encounter 09/13/2024 19:23 [place] [place]: Emergency COMPLAINT: - POSS INFECTION DIAGNOSES: - Allergy status to other antibiotic agents - Allergy to other foods - Bee allergy status - Cellulitis of left upper limb - Other intermodal truck driver (current) drug therapy - Pain in left elbow 05/20/2024 19:58 SHADY Barrettgeetha PascalJohn [place] TYPE: Emergency COMPLAINT: - SKIN ISSUE DIAGNOSES: - Allergy status to penicillin - Allergy to other foods - Bee allergy status - Cutaneous abscess of right axilla - Other long-term (current) drug therapy 03/31/2024 02:36 SHADY Barrettgeetha PascalJohn [place] TYPE: Emergency COMPLAINT: - WOUND CHECK DIAGNOSES: - Allergy status to penicillin - Allergy to other foods - Bee allergy status - Cutaneous abscess of buttock - Cutaneous abscess of right axilla - Localized swelling, mass and lump, right upper limb INPATIENT VISIT TRACKING (12 MO.) No inpatient visits to display in this time frame [id number]
[2025-03-20] MEDS ORDERED: HYDROCODONE/ACETA 5/325 TAB PO ONE (16:15)
[2025-03-20] MEDS ORDERED: IBUPROFEN 600 MG TAB PO ONE (16:15)
[2025-03-20 16:19] VITALS: BP 133/84
== END 2025-03-20 16:19 | disposition home or self-care (01) ==
LOC: ED 15:16
DX: K02.9 Dental caries, unspecified (principal); B20 Human immunodeficiency virus [HIV] disease; Z88.1 Allergy status to other antibiotic agents; Z91.030 Bee allergy status; Z91.018 Allergy to other foods
CPT/HCPCS: 99282; A9270

== ENCOUNTER 2025-04-24 08:23 | Emergency (ER) | payer OTHER ==
[~2025-04-24] VITALS: Ht 203.2 cm; Wt 105.5 kg
--- OUTSIDE RECORDS SUMMARY | ~2025-04-24 | XMS | Continuity of Care Document ---
Demographics + + + | Address | [address] | | | [place] [address] | + + + | Preferred Language | Unknown | + + + | Marital Status | Never | + + + | Confucianist Affiliation | Unknown | + + + | Race | White | + + + | Ethnic Group | Not or | + + + Author + + + | Author | [facility] | + + + | Organization | [facility] | + + + | Address | [address] | | | [place] [address] | + + + | Phone | | + + + Care Team Providers + + + + | Care Wax Cutter Name | Role | Phone | + [...] | (no date) | DOCUSATE SODIUM | [facility] | | | | [facility] | + + + + | (no date) | DOCUSATE SODIUM | [facility] | | | | [facility] | + + + + | (no date) | IBUPROFEN | [facility] | | | | [facility] | + + + + | (no date) | IBUPROFEN | [facility] | | | | [facility] | + + + + | (no date) | ACETAMINOPHEN | [facility] | | | | [facility] | + + + + | (no date) | ACETAMINOPHEN | [facility] | | | | [facility] | + + + + | (no date) | Bictegrav/Emtricit/Tenofov | [facility] | | | [place] | [facility] | + + + + | (no date) | Bictegrav/Emtricit/Tenofov | [facility] | | | [place] | [facility] | + + + + | (no date) | FLUOXETINE HCL | [facility] | | | | [facility] | + + + + | (no date) | FLUOXETINE HCL | [facility] | | | | [facility] | + + + + | (no date) | FLUOXETINE HCL | [facility] | | | | [facility] | + + + + | (no date) | FLUOXETINE HCL | [facility] | | | | [facility] | + + + + | (no date) | CALCIUM POLYCARBOPHIL | [facility] | | | | [facility] | + + + + | (no date) | CALCIUM POLYCARBOPHIL | [facility] | | | | [facility] | + + + + | (no date) | ACETAMINOPHEN | [facility] | | | [facility] | + + + + | (no date) | ACETAMINOPHEN | [facility] | | | | [facility] | + + + + | 2025-02-14 00:00 | CLINDAMYCIN HCL | [facility] | | | | [facility] | + + + + | (no date) | AMOXICILLIN/POTASSIUM CLAV | [facility] | | | | [facility] | + + + + | (no date) | AMOXICILLIN/POTASSIUM CLAV | [facility] | | | | [facility] | + + + + | (no date) | TRAMADOL HCL | [facility] | | | | [facility] | + + + + | (no date) | TR[facility]ADOL HCL | [facility] | | | | [facility] | + + + + | 2025-02-14 00:00 | HYDROCODONE | [facility] | | | BIT/ACETAMINOPHEN | [facility] | + + + + | (no date) | CHLORDIAZEPOXIDE HCL | [facility] | | | | [facility] | + + + + | (no date) | CHLORDIAZEPOXIDE HCL | [facility] | | | | [facility] | + + + + | (no date) | hydrOXYzine HCL | [facility] | | | | [facility] | + + + + | (no date) | hydrOXYzine HCL | [facility] | | | | [facility] | + + + + Problems + + + + | date | description | facility | + + + + | 2025-02-14 00:00 | Toothache | [facility] | | | | [facility] | + + + + | 2025-02-14 00:00 | Toothache | [facility] | | | | [facility] | + + + + | 2025-02-21 00:00 | Contusion of chest wall | [facility] | | | | [facility] | + + + + | 2025-03-20 00:00 | Pain due to dental caries | [facility] | | | | [facility] | + + + + Procedures [...]
--- OUTSIDE RECORDS SUMMARY | 2025-04-24 08:30 | XMS ---
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 LEE Security Visual Merchandising Coordinator Events No recent Security Events currently on file CRITERIA MET - 6 ED Visits in 6 Months CARE PROVIDERS [facility]/Center: Federally Qualified 11/28/2021-[facility] ([facility]) [facility] PHONE: Unknown -, Jun Dental+ Dentist: Coagulating Bath Mixer Current [place] PHONE: [phone] [facility]/Center: [facility]. \F\ <UNAVAIL> PHONE: [phone] JASMEET KRAUS Assistant Infant Toddler Teacher/Abe Teacher Current [facility] TEAM PHONE: Unknown Pratima has no Care Guidelines for this patient. EJohnDJohn VISIT COUNT (12 MO.) 8 SHADY Wiggins TOTAL 8 NOTE: Visits indicate total known visits. ED/UCC VISIT TRACKING (12 MO.) 04/24/2025 08:23 [facility] [place] TYPE: Emergency COMPLAINT: - COLD SYMPTOMS 03/20/2025 15:17 [facility] [place] TYPE: Emergency COMPLAINT: - TOOTH PAIN DIAGNOSES: - Allergy status to other antibiotic agents - Allergy to other foods - Bee allergy status - Dental caries, unspecified - Other specified disorders of teeth and supporting structures 02/21/2025 07:24 [facility] [place] TYPE: Emergency COMPLAINT: - FALL DIAGNOSES: - Allergy status to other antibiotic agents - Bee allergy status - Contusion of middle front wall of thorax, initial encounter - Fall on same level from slipping, tripping and stumbling without subsequent striking against object, initial encounter - Other chest pain - Other terminal makeup operator (current) drug therapy 02/14/2025 06:25 [facility] [place] TYPE: Emergency [...] Cellulitis of left upper limb - Other fci (current) drug therapy - Pain in left elbow 05/20/2024 19:58 [facility] [place] TYPE: Emergency COMPLAINT: - SKIN ISSUE DIAGNOSES: - Allergy status to penicillin - Allergy to other foods - Bee allergy status - Cutaneous abscess of right axilla - Other terminal makeup operator (current) drug therapy INPATIENT VISIT TRACKING (12 MO.) No inpatient visits to display in this time frame [email or web address]
[2025-04-24] MEDS ORDERED: ACETAMINOPHEN 500 MG TAB PO ONE (08:45)
[2025-04-24] MEDS ORDERED: IBUPROFEN 600 MG TAB PO ONE (08:45)
[2025-04-24 09:30] VITALS: BP 159/90
[2025-04-24] MEDS ORDERED: HYDROCODON-ACE1 EA11 PO (09:43)
[2025-04-24] MEDS ORDERED: HYDROCODONE/ACETA 7.5/325 TAB PO ONE (09:45)
[2025-04-25] MEDS ORDERED: PERCOCET 5-3251 EACH PO (20:31)
== END 2025-04-24 09:30 | disposition home or self-care (01) ==
LOC: ED 08:23
DX: S22.31XA Fracture of one rib, right side, initial encounter for closed fracture (principal); X58.XXXA Exposure to other specified factors, initial encounter; Z88.0 Allergy status to penicillin; Z91.018 Allergy to other foods; Z91.030 Bee allergy status
CPT/HCPCS: 71046; 99283; A9270

== ENCOUNTER 2025-04-25 19:19 | Emergency (ER) | payer OTHER ==
[~2025-04-25] VITALS: Ht 203.2 cm; Wt 105.5 kg
--- OUTSIDE RECORDS SUMMARY | ~2025-04-25 | XMS | Continuity of Care Document ---
Demographics + + + | Address | [address] | | | [place] [address] | + + + | Preferred Language | Unknown | + + + | Marital Status | Never | + + + | Church Affiliation | Unknown | + + + | Race | White | + + + | Ethnic Group | Not or | + + + Author + + + | Author | [facility] | + + + | Organization | [facility] | + + + | Address | [address] | | | [place] [address] | + + + | Phone | | + + + Care Team Providers + + + + | Care Warehouse Analyst Name | Role | Phone | + + + + Unavailable | Unavailable | + + + + Unavailable | Unavailable | + + + + Unavailable | Unavailable | + + + + Allergies and Intolerances + + + + + + | date | description | facility | reaction | severity | + + + + + + | 2025-02-21 | Wasp venom | [facility] Anaphylaxis | (no severity) | | 00:00 | | [facility] | | | + + + + + + | 2025-02-21 | Amoxicillin | [facility] | Rash | Moderate | | 00:00 | | [facility] | | | + + + + + + | 2025-02-21 | Amoxicillin | [facility] | Rash | Moderate | | 00:00 | | [facility] | | | + + + + + + | 2025-02-21 | Amoxicillin | [facility] | Rash | Moderate | | 00:00 | | [facility] | | | + + + + + + | 2025-02-21 | UNK | [facility] | Anaphylaxis | (no severity) | | 00:00 | | [facility] | | | + + + + + + | 2025-02-21 | Wasp venom | [facility] | Anaphylaxis | (no severity) | | 00:00 | | [facility] | | | + + + + + + | 2025-02-21 | UNK | [facility] | Anaphylaxis | (no severity) | | 00:00 | | [facility] | | | + + + + + + Encounters No information. Functional Status No information. Immunizations No information. Medications + + + + | date | description | facility | + + + + | (no date) | DOC[facility] SODIUM | [facility] | | | | [facility] | + + + + | (no date) | DOCUSATE SODIUM | [facility] | | | | [facility] | + + + + | (no date) | IBUPROFEN | [facility] | | | | [facility] | + + + + | (no date) | IBUPROFEN | [facility] | | | | [facility] | + + + + | (no date) | ACETAMINOPHEN | [facility] | | | | [facility] | + + + + | (no date) | ACETAMINOPHEN | [facility] | | | | [facility] | + + + + | (no date) | Bictegrav/Emtricit/Tenofov | [facility] [place] | [place] | [facility] | + + + + | (no date) | Bictegrav/Emtricit/Tenofov | [facility] | | | [place] | [facility] | + + + + | (no date) | FLUOXETINE HCL | [facility] | | | | [facility] | + + + + | (no date) | FLUOXETINE HCL | [facility] | | | | [facility] | + + + + | (no date) | FLUOXETINE HCL | [facility] | | | | [facility] | + + + + | (no date) | FLUOXETINE HCL | [facility] | | | | [facility] | + + + + | (no date) | CALCIUM POLYCARBOPHIL | [facility] | | | | [facility] | + + + + | (no date) | CALCIUM POLYCARBOPHIL | [facility] | | | | [facility] | + + + + | (no date) | ACETAMINOPHEN | [facility] | | | | [facility] | + + + + | (no date) | ACETAMINOPHEN | [facility] | | | | [facility] | + + + + | 2025-02-14 00:00 | CLINDAMYCIN HCL | [facility] | | | | [facility] | + + + + | (no date) | AMOXICILLIN/POTASSIUM CLAV | [facility] | | | | [facility] | + + + + | (no date) | AMOXICILLIN/POTASSIUM CLAV | [facility] | | | | [facility] | + + + + | (no date) | TRAMADOL HCL | [facility] | | | | [facility] | + + + + | (no date) | TR[facility]ADOL HCL | [facility] | | | [facility] | + + + + | 2025-02-14 00:00 | HYDROCODONE | [facility] | | | BIT/ACETAMINOPHEN | [facility] | + + + + | (no date) | CHLORDIAZEPOXIDE HCL | [facility] | | | | [facility] | + + + + | (no date) | CHLORDIAZEPOXIDE HCL | [facility] | | | | [facility] | + + + + | (no date) | hydrOXYzine HCL | [facility] | | | | [facility] | + + + + | (no date) | hydrOXYzine HCL | [facility] | | | | [facility] | + + + + Problems + + + + | date | description | facility | + + + + | 2025-02-14 00:00 | Toothache | [facility] | | | | [facility] | + + + + | 2025-02-14 00:00 | Toothache | [facility] | | | | [facility] | + + + + | 2025-02-21 00:00 | Contusion of chest wall | [facility] | | | | [facility] | + + + + | 2025-03-20 00:00 | Pain due to dental caries | [facility] | | | | [facility] | + + + + Procedures No information. Results/Labs No information. Social History +--------+ + + | date | description | facility | +--------+ + + Vital Signs + + + +---------+ | date | measurement | value | units | + + + +---------+ | 2025-02-14 00:00 | BMI | 26.6 | kg/m2 | + + + +---------+ | 2025-02-14 00:00 | BP_diastolic | 80 | mmHg | + + + +---------+ | 2025-02-14 00:00 | BP_systolic | 147 | mmHg | + + + +---------+ | 2025-02-14 00:00 | heart_rate | 87 | /min | + + + +---------+ | 2025-02-14 00:00 | height_metric | 203.2 | cm | + + + +---------+ | 2025-02-14 00:00 | height_standard | 80 | in | + + + +---------+ | 2025-02-14 00:00 | o2_saturation | 99 | % | + + + +---------+ | 2025-02-14 00:00 | respiration_rate | 16 | /min | + + + +---------+ | 2025-02-14 00:00 | | 97.9 | F | | | temperature_standar | | | | | d | | | + + + +---------+ | 2025-02-14 00:00 | weight_metric | 109.801 | kg | + + + +---------+ | 2025-02-14 00:00 | weight_standard | 242.068 | lb | + + + +---------+ | 2025-02-21 00:00 | BMI | 25.4 | kg/m2 | + + + +---------+ | 2025-02-21 00:00 | BP_diastolic | 86 | mmHg | + + + +---------+ | 2025-02-21 00:00 | BP_systolic | 125 | mmHg | + + + +---------+ | 2025-02-21 00:00 | heart_rate | 94 | /min | + + + +---------+ | 2025-02-21 00:00 | height_metric | 203.2 | cm | + + + +---------+ | 2025-02-21 00:00 | height_standard | 80 | in | + + + +---------+ | 2025-02-21 00:00 | o2_saturation | 100 | % | + + + +---------+ | 2025-02-21 00:00 | respiration_rate | 16 | /min | + + + +---------+ | 2025-02-21 00:00 | | 98.1 | F | | | temperature_standar | | | | | d | | | + + + +---------+ | 2025-02-21 00:00 | weight_metric | 104.7 | kg | + + + +---------+ | 2025-02-21 00:00 | weight_standard | 230.825 | lb | + + + +---------+ | 2025-03-20 00:00 | BMI | 25.6 | kg/m2 | + + + +---------+ | 2025-03-20 00:00 | BP_diastolic | 84 | mmHg | + + + +---------+ | 2025-03-20 00:00 | BP_systolic | 133 | mmHg | + + + +---------+ | 2025-03-20 00:00 | heart_rate | 73 | /min | + + + +---------+ | 2025-03-20 00:00 | height_metric | 203.2 | cm | + + + +---------+ | 2025-03-20 00:00 | height_standard | 80 | in | + + + +---------+ | 2025-03-20 00:00 | o2_saturation | 100 | % | + + + +---------+ | 2025-03-20 00:00 | respiration_rate | 17 | /min | + + + +---------+ | 2025-03-20 00:00 | | 98.7 | F | | | temperature_standar | | | | | d | | | + + + +---------+ | 2025-03-20 00:00 | weight_metric | 105.5 | kg | + + + +---------+ | 2025-03-20 00:00 | weight_standard | 232.587 | lb | + + + +---------+"
[~2025-04-25 19:19] MED LIST changes: +HYDROCODON-ACE1 EA11 PO
--- OUTSIDE RECORDS SUMMARY | 2025-04-25 19:27 | XMS ---
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 PHONE: Unknown -, Jun Dental+ Dentist: Chief Concierge Current [place] PHONE: [phone] [facility]. \F\ <UNAVAIL> PHONE: [phone] JASMEET KRAUS Doubling Machine Operator/Strategic Planning Specialist Current [facility] TEAM PHONE: Unknown Pratima has no Care Guidelines for this patient. [place] VISIT COUNT (12 MO.) 9 SHADY Wiggins TOTAL 9 NOTE: Visits indicate total known visits. ED/UCC VISIT TRACKING (12 MO.) 04/25/2025 19:20 [facility] [place] TYPE: Emergency COMPLAINT: - COLD SYMPTOMS 04/24/2025 08:23 [facility] [place] TYPE: Emergency [...] encounter - Other chest pain - Other detention (current) drug therapy 02/14/2025 06:25 SHADY Barrera [...] Cellulitis of left upper limb - Other emt intermediate (current) drug therapy - Pain in left elbow 05/20/2024 19:58 [facility] [place] TYPE: Emergency COMPLAINT: - SKIN ISSUE DIAGNOSES: - Allergy status to penicillin - Allergy to other foods - Bee allergy status - Cutaneous abscess of right axilla - Other emt intermediate (current) drug therapy INPATIENT VISIT TRACKING (12 MO.) No inpatient visits to display in this time frame [email or web address]
[2025-04-25] MEDS ORDERED: OXYCODONE HCL 5 MG TAB PO ONE (19:45)
[2025-04-25] MEDS ORDERED: OXYCODONE/ACETAMINOPHEN 1 TAB HOME.PACK PO ONE (20:30)
[2025-04-25] MEDS ORDERED: ALBUTEROL SULFATE 8 GM HOME.PACK INH ONE (20:30)
[2025-04-25] MEDS ORDERED: PERCOCET 5-3251 EACH PO (20:31)
[2025-04-25 20:44] VITALS: BP 155/90
== END 2025-04-25 20:46 | disposition home or self-care (01) ==
LOC: ED 19:19
DX: S22.31XD Fracture of one rib, right side, subsequent encounter for fracture with routine healing (principal); J20.8 Acute bronchitis due to other specified organisms; X58.XXXD Exposure to other specified factors, subsequent encounter; Z79.899 Other long term (current) drug therapy; Z88.0 Allergy status to penicillin; Z91.030 Bee allergy status; Z91.018 Allergy to other foods
CPT/HCPCS: 99283; A9270